=== PATIENT | female | born 1995 | race Caucasian/White ===

== ENCOUNTER 2021-10-26 19:44 | Emergency (ER) | payer OTHER, SELFPAY ==
--- NOTE | 2021-10-26 19:44 | ED.URI ---
HPI - URI/Sore Throat General Stated Complaint: Sinus Pain Time Seen by Provider: 10/26/21 19:44 Source: patient and RN notes reviewed History of Present Illness HPI Narrative: Patient is a 26-year-old female who presents the urgent care with complaints of sinus pressure for the last 5 days. Patient denies of any fever, nausea, vomiting, ear pain, sore throat. Patient states she did have a mild cough which is since subsided. Patient has been taking Mucinex cold and cough. Denies of any known ill exposures. No other acute complaints. No acute distress noted. Patient aware of the plan of care. Some parts of this dictation were generated by voice recognition software and may contain typographical and/or grammatical inaccuracies. Related Data Allergies Allergy/AdvReac Type Severity Reaction Status Date / Time No Known Allergies Allergy Verified 10/26/21 19:56 Review of Systems Review of Systems: CONSTITUTIONAL: Denies fever, chills, or sweats. EYES: Denies visual changes, redness, or discharge. ENT: Denies rhinorrhea,sore throat, or otalgia. Reports a frontal sinus pressure CARDIOVASCULAR: Denies chest pain, palpitations, or edema. RESPIRATORY: Denies cough or dyspnea. GASTROINTESTINAL: Denies abdominal pain, nausea, vomiting, or diarrhea. GENITOURINARY: Denies dysuria or hematuria. SKIN: Denies rash or itching. MUSCULOSKELETAL: Denies back pain, joint pain, or myalgia. NEUROLOGIC: Denies headache, numbness, or weakness. All other systems reviewed are negative, except as documented in HPI. PMFSH Comments At the time of my signature, I reviewed and agree with the nursing past medical, surgical, social, and family history. There is no relevant family history pertinent to the patient complaint. Exam Narrative: GENERAL: This is a well-nourished, well-developed patient, in no apparent distress. HEAD: normocephalic, atraumatic. Frontal sinus tenderness EYES: PERRL. Sclera clear/white. Vision is grossly intact. EARS: External ears normal, auditory canals clear and without drainage, TMs normal without perforation. Hearing grossly intact. NOSE: External nose normal with no obvious nasal discharge, nares without redness, no rhinorrhea. THROAT: Mucous membranes moist, posterior pharynx clear. NECK: Neck supple CARDIOVASCULAR: Regular rate and rhythm without murmurs, gallops, or rubs. RESPIRATORY: Clear to auscultation. Breath sounds equal bilaterally. No wheezes, rales, or rhonchi. SKIN: warm, intact with no suspicious lesions or rash, good texture and turgor. NEURO: awake, alert, and oriented to person, place and time. There were no obvious focal neurologic abnormalities. EXTREMITIES: No clubbing, cyanosis, or edema. Course Course Level of Care: Express Care Visit Vital Signs Vital signs: Vital Signs Temperature 98.4 F 10/26/21 19:55 Pulse Rate 87 10/26/21 19:55 Respiratory Rate 16 10/26/21 19:55 Blood Pressure 159/102 H 10/26/21 19:55 Pulse Oximetry 100 10/26/21 19:55 Temperature 98.4 F 10/26/21 19:58 Pulse Rate 87 10/26/21 19:58 Respiratory Rate 16 10/26/21 19:58 Blood Pressure 159/102 H 10/26/21 19:58 Pulse Oximetry 100 10/26/21 19:58 Reviewed-patient is informed that they may have pre-hypertension or hypertension based on a blood pressure reading in the department. I recommend the patient call the primary care provider listed on their discharge instructions or a physician of their choice this week to arrange follow-up for further evaluation of possible pre-hypertension or hypertension. MDM - URI/Sore Throat MDM Narrative Medical decision making narrative: Explained viral versus bacterial sinusitis to the patient. She is aware that symptoms do not warrant antibiotics at this time. Advised her to complete the steroid regimen as prescribed. Be sure to eat and drink with the medication. Use Claritin daily and Benadryl prior to bedtime. May use Flonase nasal spray for symptom relief. Use Ty
[2021-10-26 19:55] VITALS: BP 159/102; PULSE 87; RESP 16; TEMP 36.9; O2SAT 100
[2021-10-26 19:58] VITALS: BP 159/102; PULSE 87; RESP 16; TEMP 36.9; O2SAT 100
== END 2021-10-26 20:00 | disposition home or self-care (01) ==
PROVIDERS: Emergency Provider Nurse Practitioner Family
DX: J32.9 Chronic sinusitis, unspecified (principal); F41.9 Anxiety disorder, unspecified; F32.A Depression, unspecified
CPT/HCPCS: 99213; G0463

== ENCOUNTER 2024-04-17 16:34 | Outpatient (RCR) | payer OTHER, SELFPAY ==
[2024-04-17 17:35] LABS: Beta HCG Quantitative 51.62 mIU/ML
== END 2024-07-16 23:59 | disposition home or self-care (01) ==
LOC: ANHLAB 16:34
PROVIDERS: Visit Provider Obstetrics & Gynecology
DX: O36.0130 Maternal care for anti-D [Rh] antibodies, third trimester, not applicable or unspecified (principal)
CPT/HCPCS: 36415; 84702; 85461; 86850; 86900; 86901

== ENCOUNTER 2024-04-18 08:48 | Emergency (ER) | payer OTHER, SELFPAY ==
[2024-04-18 09:02] VITALS: BP 129/87; PULSE 82; RESP 18; TEMP 36.8; O2SAT 97
[2024-04-18 09:07] LABS: Basophils Percent Auto 0.2 % (0.2-1.2); Eosinophils Absolute Auto 0.2 K/mm3 (0-0.3); Hemoglobin 13.4 g/dL (12.0-15.0); Immature Granulocyte Absolute 0.02 K/mm3 (0.00-0.031); Immature Granulocyte Percent A 0.2 % (0-0.5); Mean Corpuscular HGB Conc 33.5 g/dl (32-36); Mean Corpuscular Hemoglobin 30.3 pg (26-34); Mean Corpuscular Volume 90.5 fl (80-100); Mean Platelet Volume 10.1 fl (7.4-10.4); Monocytes Absolute Auto 0.6 K/mm3 (0.1-0.6); Monocytes Percent Auto 7.1 % (2.6-8.5); Neutrophils Absolute Auto 5.2 K/mm3 (1.3-6.7); Neutrophils Percent Auto 63.5 % (45.5-73.1); Platelet Count Result 225 k/mm3 (150-375); Red Blood Count 4.42 M/mm3 (4.2-5.4); Red Cell Distribution Width 12.5 % (11.5-14.5); White Blood Count 8.2 K/mm3 (4.5-10.0)
--- NOTE | 2024-04-18 09:22 | ED_ITS ---
HPI - General Chief complaint: Vaginal Bleeding Stated complaint: with bleeding Time Seen by Provider: 04/18/24 08:51 History of Present Illness HPI Narrative: patient is , around 6 weeks by LMP though possibly less, started noticing some bleeding yesterday, saw her doctor, had an ultrasound which is equivocal as she was too early to tell, came back today because she has noticed more bleeding. Has not use any pads, did change her underwear twice. Has some cramping Related Data Home Medications Medication Instructions Recorded Confirmed bupropion HCl 75 mg tablet 75 mg PO DAILY 10/26/21 10/26/21 venlafaxine 25 mg tablet 25 mg PO BID 10/26/21 10/26/21 Allergies Allergy/AdvReac Type Severity Reaction Status Date / Time No Known Allergies Allergy Verified 04/18/24 09:04 Review of Systems Review of Systems: All systems reviewed & are unremarkable except as noted in HPI and below Exam Narrative: EXAMINATION OF ORGAN SYSTEMS/BODY AREAS: Constitutional: Vital signs per nursing GENERAL:[No acute distress, non-toxic appearing.] HEAD: Normal with no signs of head trauma. EYES: EOMI, conjunctiva normal ENT: Hearing grossly intact LUNGS: Nonlabored breathing. HEART: [Regular rate and rhythm] ABD: [Soft], [nontender to palpation] : with partner in room. Scant blood; no active heavy bleeding or hemorrhage EXT: Normal range of motion SKIN: [No rashes or lesions.] NEURO: [Alert and oriented x 3. No gross focal sensory or strength deficits.] PSYCH: Normal affect Course Vital Signs Vital signs: Vital Signs Temperature 98.2 F 04/18/24 09:02 Pulse Rate 82 04/18/24 09:02 Respiratory Rate 18 04/18/24 09:02 Blood Pressure 129/87 04/18/24 09:02 Pulse Oximetry 97 04/18/24 09:02 Oxygen Delivery Room Air 04/18/24 09:02 Temperature 98.2 F 04/18/24 09:02 Pulse Rate 82 04/18/24 09:02 Respiratory Rate 18 04/18/24 09:02 Blood Pressure 129/87 04/18/24 09:02 Pulse Oximetry 97 04/18/24 09:02 Oxygen Delivery Room Air 04/18/24 09:02 MDM - OB/Uterine Contractions MDM Narrative Medical decision making narrative: Patient presents with vaginal bleeding, at several weeks , as she is well-appearing, abdomen soft nontender, scant blood, repeat hCG unfor tunately is lower, I am concerned about likely failed / miscarriage. Discussed findings with patient, as well as importance of following up with her OB as she will need follow-up and return precautions are discussed in case of worsening bleeding. She and at bedside agreeable to this plan. Lab Data 04/18/24 09:02 Labs: Lab Results 04/18/24 Range/Units 09:02 WBC 8.2 (4.5-10.0) K/mm3 RBC 4.42 (4.2-5.4) M/mm3 Hgb 13.4 (12.0-15.0) g/dL Hct 40.0 (37.0-47.0) % MCV 90.5 (80-100) fl MCH 30.3 (26-34) pg MCHC 33.5 (32-36) g/dl RDW 12.5 (11.5-14.5) % Plt Count 225 (150-375) k/mm3 MPV 10.1 (7.4-10.4) fl Immature Gran % (Auto) 0.2 (0-0.5) % Neut % (Auto) 63.5 (45.5-73.1) % Lymph % (Auto) 27.0 (18.3-44.2) % [place] % (Auto) 7.1 (2.6-8.5) % Eos % (Auto) 2.0 (0-4.4) % Baso % (Auto) 0.2 (0.2-1.2) % Lymph # (Auto) 2.20 (0.9-3.2) K/mm3 [place] # (Auto) 0.6 (0.1-0.6) K/mm3 Eos # (Auto) 0.2 (0-0.3) K/mm3 Baso # (Auto) 0.0 (0.0-0.1) K/mm3 Abs Immat Gran (auto) 0.02 (0.00-0.031) K/mm3 Absolute Neuts (auto) 5.2 (1.3-6.7) K/mm3 Absolute Nucleated RBC 0.000 (0.0-0.012) K/mm3 Nucleated RBC % 0.0 (0.0-0.2) % Beta HCG, Quant 35.28 mIU/ML Discharge Plan Discharge Clinical Impression: Threatened Patient Disposition: Home, Self-Care Condition: Stable Instructions: Threatened Miscarriage (ED) Additional Instructions: Please follow-up with your OBGYN. Come back to the ER if you start bleeding more heavily (soaking through a pad an hour for 2 hours straight). Prescriptions: No Action methylprednisolone [Medrol (Alec)] 4 mg tablets,dose pack See Rx Instructions .ROUTE .COMPLEX Qty: 21 0RF Rx Instructions: orally per package directions venlafaxine 25 mg Tablet 25 mg PO BID bupropion HCl [Wellbutrin] 75 mg Tablet 75 mg PO DAILY Follow-up/Referrals: Slavador Arreola MD [Primary Care Provider] - 2 Days
[2024-04-18 09:36] LABS: Beta HCG Quantitative 35.28 mIU/ML
[2024-04-18 09:59] VITALS: BP 119/85; PULSE 77; RESP 18; O2SAT 99
== END 2024-04-18 10:02 | disposition home or self-care (01) ==
PROVIDERS: Emergency Provider Emergency Medicine; PCP Obstetrics & Gynecology
DX: O20.0 Threatened abortion (principal); Z3A.01 Less than 8 weeks gestation of pregnancy
CPT/HCPCS: 36415; 84702; 85025; 99283

== ENCOUNTER 2024-04-26 08:25 | Outpatient (CLI) | payer OTHER, SELFPAY ==
[2024-04-26 09:24] LABS: Beta HCG Quantitative < 2.39 mIU/ML
== END 2024-04-26 08:26 | disposition home or self-care (01) ==
PROVIDERS: PCP Obstetrics & Gynecology; Visit Provider Obstetrics & Gynecology
DX: O20.0 Threatened abortion (principal); Z3A.00 Weeks of gestation of pregnancy not specified
CPT/HCPCS: 36415; 84702

== ENCOUNTER 2024-12-24 09:18 | Emergency (ER) | payer OTHER, SELFPAY ==
--- OUTSIDE RECORDS SUMMARY | 2024-12-24 09:21 | XMS_ITS | Encounter Summary ---
Author Organization [facility] Address [address] [place] [address] Care Team Providers Care Mosaic Tile Maker Name Role Phone Jacquelyn Madison Primary Care Provider [phone] Encounter Details Date Type Department Care Team (Late st Contact Info) Description 06/03/2022 Hand Therapy Solutionst Message Enc [facility] Family & Internal Medicine [id number] [place] [address] Jacquelyn Madison APNP Formerly named [facility] [place] [address] HSV1 medicine Social History Tobacco Use Types Packs/Day Years Used Date Smoking Tobacco: Never Smokeless Tobacco: Never Alcohol Use Standard Drinks/Week Comments Yes 3 (1 standard drink = 0.6 oz pur e alcohol) social PHQ-2 Answer Date Recorded PHQ-2 Score - If the patient scores above 3, please move on to questions 3-9 3 11/26/2020 Education Answer Date Recorded What is the highest level of school you have completed or the highest degree you have received? Associate degree: occupational, technical, or vocational program 05/31/2018 Comments No Sex and Gender Information Value Date Recorded Sex Assigned at Not on file Legal Sex Female 7:42 PM CDT Gender Identity Female 07/21/2021 11:07 AM REGIONAL EDUCATION MANAGER Sexual Orientation Straight 07/21/2021 11 :07 AM REGIONAL EDUCATION MANAGER Occupation Industry Job Start Date Job End Date Not on file Not on file Not on file Not on file Not on file Not on file Not on file Not on file documented as of this encounter Plan of Treatment Not on file documented as of this encounter Visit Diagnoses Not on filedocumented in this encounter Additional Health Concerns Assessment Noted Time PHQ-9 Depression Total Score: 20 021 9:16 AM CDT documented as of this encounter Care Teams Mosaic Tile Maker Relationship Specialty Start Date End Date Jacquelyn Madison APNP [address] [place] [id number] PCP - General NURSE PRACTITIONER 07/22/21 documented as of this encounter
--- OUTSIDE RECORDS SUMMARY | 2024-12-24 09:21 | XMS_ITS | Encounter Summary ---
Author Organization [facility] Address [address] [place] [address] Care Team Providers Care Float Phlebotomist Name Role Phone Jacquelyn Madison Primary Care Provider [phone] Encounter Details Date Type Department Care Team (Late st Contact Info) Description 10/09/2022 Demibookshart Message Enc [facility] Family & Internal Medicine [id number] [place] [address] Jacquelyn Madison APNP [facility] [place] [address] Test results Social History Tobacco Use Types Packs/Day Years Used Date Smoking Tobacco: Never Smokeless Tobacco: Never Alcohol Use Standard Drinks/Week Comments Not Currently 3 (1 standard drink = 0.6 oz [...] CDT Gender Identity Female 07/21/2021 11:07 AM PRESS CLIPPINGS CUTTER AND PASTER Sexual Orientation Straight 07/21/2021 11 :07 AM PRESS CLIPPINGS CUTTER AND PASTER Occupation Industry Job Start Date Job End Date Not on file Not on file Not on file Not on file Not on file Not on file Not on file Not on file COVID-19 Exposure Response Date Recorded In the last 10 days, have yo u been in contact with someone who was confirmed or suspected to have Coronavirus/COVID-19? No / Unsure 10/07/2022 12:13 PM CDT documented as of this encounter Progress Notes * MICA Wang - 10/10/2022 10:19 AM CDT Addressed in result note * MICA Wang - 10/10/2022 10:19 AM CDTFrom: Leena Montana To: Jacquelyn Madison Sent: 10/09/2022 1:20 PM CDT Subject: Test results Hello! Have you had the chance to read my test results yet?? Thank you documented in this encounter Plan of Treatment Not on file documented as of this encounter Visit Diagnoses Not on filedocumented in this encounter Additional Health Concerns Assessment Noted Time PHQ-9 Depression Total Score: 20 021 9:16 AM CDT documented as of this encounter Care Teams Float Phlebotomist Relationship Specialty Start Date End Date Jacquelyn Madison APNP [address] [place] [address] PCP - General NURSE PRACTITIONER 07/22/21 documented as of this encounter
--- OUTSIDE RECORDS SUMMARY | 2024-12-24 09:21 | XMS_ITS | Referral Summary ---
Author Organization [facility] Address [address] [place] [address] Care Team Providers Care Houseman Name Role Phone Jacquelyn Madison Primary Care Provider + Jacquelyn Madison Unavailable [phone] Allergies No known active allergies Medications citalopram (CeleXA) 40 mg tablet 0.5 tablets (20 mg total) 4 Active methylPREDNISol one (Medrol, Alec,) 4 mg DosepackIndicat ions:Acute VLADISLAV (middle ear effusion), bilateral follow package directions 1 packet 4 Active ondansetron (ZOFRAN) 4 mg tablet Take 1 tablet (4 mg total) by mouth every 6 (six) hours 12 tablet 5 Active Active Problems Problem Noted Date Diagnosed Date Migraine without aura and responsive to treatmen t 12/26/2013 Overview (09/24/2016): COMN MIGRNE WO NTRC MGRN Fever 10/28/2013 Overview (09/24/2016): FEVER NOS Tremor 10/28/2013 Overview (09/24/2016): TREMOR NEC Malaise and fatigue 10/28/2013 Overview (09/24/2016): MALAISE AND FATIGUE NEC Cellulitis of trunk 10/28/2013 Overview (09/24/2016): CELLULITIS OF TRUNK Nausea and vomiting 10/28/2013 Overview (09/24/2016): NAUSEA WITH VOMITING Infectious warts 10/28/2013 Overview (09/24/2016): VIRAL WARTS NOS Disorder of skin or subcutaneous tissue 10/29/19 14 Overview (09/24/2016): SKIN DISORDER NOS Dizziness and giddiness 10/28/2013 Overview (09/24/2016): DIZZINESS AND GIDDINESS Atopic rhinitis 10/28/2013 Overview (09/24/2016): ALLERGIC RHINITIS NOS Headache 10/28/2013 Overview (09/24/2016): HEADACHE Gastroesophageal reflux disease 10/28/2013 Overview (09/24/2016): ESOPHAGEAL REFLUX Asthma 10/28/2013 Overview (09/24/2016): ASTHMA NOS Plantar wart 10/28/2013 Overview (09/24/2016): PLANTAR WART Neoplasm of uncertain behavior of skin 4 Overview (09/24/2016): UNC BEHAV YURIY SKIN Acute streptococcal pharyngitis 10/28/2013 Overview (09/24/2016): STREP SORE THROAT Immunizations Immunization Administration Dates Next Due DT 03/30/2000, 7,1995,1995,1 Hep B, Adolescent or Pediatric 1995,1994,1995 Hib (HbOC) 1995,1995,1995 IPV 03/30/2000,1995,1995 ,1995 Influenza, Split 03/24/2010 Influenza, Trivalent, IM (MDV) 03/14/2011 MMR 03/30/2000,08/24/1996 Meningococcal MCV4P (Menactra) 03/24/2010 Tdap 03/24/2010 Social History Tobacco Use Types Packs/Day Years Used Date Smoking Tobacco: Never Smokeless Tobacco: Never Alcohol Use Standard Drinks/Week Comments No 0 (1 standard drink = 0.6 oz pur e alcohol) Personal Safety Answer Date Recorded Have you ever been in or are you currently in a harmful physical or emotional relationship or is someone making you feel afraid or unsafe? Denies 07/04/2024 Comments Unknown Sex and Gender Information Value Date Recorded Sex Assigned at Not on file Legal Sex Female 1:19 PM FINISHED YARN EXAMINER Gender Identity Not on file Sexual Orientation Not on file Last Filed Vital Signs Vital Sign Reading Time Taken Comments Blood Pressure 128/77 07/04/2024 1:29 PM FINISHED YARN EXAMINER Pulse 116 07/04/2024 1:29 PM FINISHED YARN EXAMINER Temperature 36.3 C (97.3 F) 07/04/2024 1:29 PM FINISHED YARN EXAMINER Respiratory Rate 18 07/04/2024 1:29 PM FINISHED YARN EXAMINER Oxygen Saturation 99% 07/04/2024 1:29 PM FINISHED YARN EXAMINER Inhaled Oxygen Concentration - - Weight 81.6 kg (180 lb) 07/04/2024 1:29 PM FINISHED YARN EXAMINER Height 167.6 cm (5' 6) 07/04/2024 1:29 PM FINISHED YARN EXAMINER Body Mass Index 29.05 07/04/2024 1:29 PM FINISHED YARN EXAMINER Plan of Treatment Not on file Insurance [facility] CHOICE PLUS [facility] Care Teams Houseman Relationship Specialty Start Date End Date Jacquelyn Madison PA [address] [place] [id number] PCP - General Nurse Practitioner 07/04/24 Jacquelyn Madison PA [address] [place] [id number] Nurse Practitioner 07/04/24
--- OUTSIDE RECORDS SUMMARY | 2024-12-24 09:21 | XMS_ITS | Encounter Summary ---
Author Organization [facility] Address [address] [place] [address] Care Team Providers Care Casing Cooker Name Role Phone Brice Georges MD Primary Care Provider [phone] Jacquelyn Madison Primary Care Provider [phone] Encounter Details Date Type Department Care Team (Latest Contact Info) Description 02/25/2018 Abstract [facility] , Generic Jovita, Social History Tobacco Use Types Packs/Day Years Used Date Smoking Tobacco: Never Assessed Comments Unknown Sex and Gender Information Value Date Recorded Sex Assigned at Not on file Legal Sex Female 7:42 PM CDT Gender Identity Female 07/21/2021 11:07 AM FIELD RADIO OPERATOR Sexual Orientation Straight 07/21/2021 11 :07 AM FIELD RADIO OPERATOR documented as of this encounter Plan of Treatment Not on file documented as of this encounter Visit Diagnoses Not on filedocumented in this encounter Additional Health Concerns Infection Onset Date Last Indicated Resolved Time COVID-19 Rule Out 01/01/2020 01/02/2020 01/15/2020 7:38 AM CDT documented as of this encounter Care Teams Casing Cooker Relationship Specialty Start Date End Date Brice Georges MD PCP - General INTERNAL MEDICINE 05/31/18 07/02/21 Jacquelyn Madison APNP [address] [place] [id number] PCP - General NURSE PRACTITIONER 07/22/21 documented as of this encounter
--- OUTSIDE RECORDS SUMMARY | 2024-12-24 09:21 | XMS_ITS | Encounter Summary ---
Author Organization [facility] Address [address] [place] [address] Care Team Providers Care Linter Saw Sharpener Name Role Phone Jacquelyn Madison Primary Care Provider [phone] Encounter Details Date Type Department Care Team (Late st Contact Info) Description 08/18/2022 MyGoodPointshart Message Enc [facility] Family & Internal Medicine [id number] [place] [address] [address] APNP [facility] [place] [address] Medicine Social History Tobacco Use Types Packs/Day Years [...] CDT Gender Identity Female 07/21/2021 11:07 AM SHIFT COMMANDER Sexual Orientation Straight 07/21/2021 11 :07 AM SHIFT COMMANDER Occupation Industry Job Start Date Job End Date Not on file Not on file Not on file Not on file Not on file Not on file Not on file Not on file COVID-19 Exposure Response Date Recorded In the last 10 days, have yo u been in contact with someone who was confirmed or suspected to have Coronavirus/COVID-19? Unable to assess 08/20/2022 6:42 AM SHIFT COMMANDER documented as of this encounter Plan of Treatment Not on file documented as of this encounter Visit Diagnoses Not on filedocumented in this encounter Additional Health Concerns Assessment Noted Time PHQ-9 Depression Total Score: 20 021 9:16 AM CDT documented as of this encounter Care Teams Linter Saw Sharpener Relationship Specialty Start Date End Date Jacquelyn Madison APNP [address] [place] [id number] PCP - General NURSE PRACTITIONER 07/22/21 documented as of this encounter
--- OUTSIDE RECORDS SUMMARY | 2024-12-24 09:21 | XMS_ITS | Clinical Summary ---
Author Organization [facility] Address [address] [place] [address] Care Team Providers Care Salt Operator Name Role Phone Jacquelyn Madison Primary Care Provider + Jacquelyn Madison Unavailable Allergies No known active allergies Medications citalopram [...] 03/30/2000,08/24/1996 Meningococcal MCV4P (Menactra) 03/24/2010 Tdap 03/24/2010 Family History Medical History Relation Name Comments Asthma Brother Asthma; Hypertension Father Hypertension; Lung cancer Father Cancer, lung; Other Sister 2 CN 8 tumor; Other Sister 3 Neurofibromatos is?; Other Sister 4 Neurofibromatos is 2; Relation Name Status Comments Brother Father Sister 1 Alive Sister 2 Sister 3 Sister 4 Social History Tobacco Use Types Packs/Day Years [...] on file Legal Sex Female 1:19 PM EMISSIONS INSPECTOR Gender Identity Not on file Sexual Orientation Not on file Obstetrics History Last Filed Vital Signs Vital Sign Reading Time Taken Comments Blood Pressure 128/77 07/04/2024 1:29 PM EMISSIONS INSPECTOR Pulse 116 07/04/2024 1:29 PM EMISSIONS INSPECTOR Temperature 36.3 C (97.3 F) 07/04/2024 1:29 PM EMISSIONS INSPECTOR Respiratory Rate 18 07/04/2024 1:29 PM EMISSIONS INSPECTOR Oxygen Saturation 99% 07/04/2024 1:29 PM EMISSIONS INSPECTOR Inhaled Oxygen Concentration - - Weight 81.6 kg (180 lb) 07/04/2024 1:29 PM EMISSIONS INSPECTOR Height 167.6 cm (5' 6) 07/04/2024 1:29 PM EMISSIONS INSPECTOR Body Mass Index 29.05 07/04/2024 1:29 PM EMISSIONS INSPECTOR Plan of Treatment Health Maintenance Due Date Last Done Comments Cervical Cancer Screening 1995 Depression Screening 1995 Hepatitis C Screening 1995 Varicella Vaccines (1 of 2 - 13+ 2-dose series) 01/17/2008 Regular Well Visit/Exam 18-64 2013 Pneumococcal vaccine <65 (1 of 2 - PCV) 2014 DTaP/Tdap/Td Vaccine (7 - Td or Tdap) 03/24/2020 03/24/2010, 03/30/2000, 08/24/1996, Additional history exists Influenza Vaccine (Season Ended) 2025 03/14/2011, 03/24/2010 Hepatitis B Screening Completed 1995 , 1995, 1995 HPV Vaccines Aged Out No longer eligi ble based on patient's age to complete this topic Insurance [facility] CHOICE PLUS [facility] HMO/PPO Address: [address] [address] [place] [address] [facility] H[facility]/PPO Address: [address] [address] [place] [address] Care Teams Salt Operator Relationship Specialty Start Date End Date Jacquelyn Madison PA [address] [place], [place] [phone] PCP - General Nurse Practitioner 07/04/24 Jacquelyn Madison PA [address] [place] [address] [phone] Nurse Practitioner 07/04/24
--- OUTSIDE RECORDS SUMMARY | 2024-12-24 09:21 | XMS_ITS | Encounter Summary ---
Author Organization [facility] Address [address] [place] [address] Care Team Providers Care Security Operations Center Analyst Name Role Phone Jacquelyn Madison Primary Care Provider [phone] Encounter Details Date Type Department Care Team (Late st Contact Info) Description 11/13/2022 Ikrot Message Enc [facility] Family & Internal Medicine [address] [address] [place] Provider Citalopram Social History Tobacco Use Types Packs/Day Years [...] CDT Gender Identity Female 07/21/2021 11:07 AM DTP OPERATOR Sexual Orientation Straight 07/21/2021 11 :07 AM DTP OPERATOR Occupation Industry Job Start Date Job End [...] documented as of this encounter Care Teams Security Operations Center Analyst Relationship Specialty Start Date End Date Jacquelyn Madison APNP [facility] [place] [address] PCP - General NURSE PRACTITIONER 07/22/21 documented as of this encounter
--- OUTSIDE RECORDS SUMMARY | 2024-12-24 09:21 | XMS_ITS | Encounter Summary ---
Author Organization [facility] Address [address] [place] [address] Care Team Providers Care Quality Control Assessor Name Role Phone Jacquelyn Madison Primary Care Provider [phone]- [phone] Encounter Details Date Type Department Care Team (Late st Contact Info) Description 08/22/2022 [employer] Message Enc [facility] Medical Group Family & Internal Medicine [phone] [place] [address] Jacquelyn Madison APNP [facility] [place] [address] Prescription Social History Tobacco Use Types Packs/Day Years [...] CDT Gender Identity Female 07/21/2021 11:07 AM INVENTORY CONTROL ANALYST Sexual Orientation Straight 07/21/2021 11 :07 AM INVENTORY CONTROL ANALYST Occupation Industry Job Start Date Job End [...] Coronavirus/COVID-19? Unable to assess 08/20/2022 6:42 AM INVENTORY CONTROL ANALYST documented as of this encounter Plan of Treatment Not on file documented as of this encounter Visit Diagnoses Not on filedocumented in this encounter Additional Health Concerns Assessment Noted Time PHQ-9 Depression Total Score: 20 021 9:16 AM CDT documented as of this encounter Care Teams Quality Control Assessor Relationship Specialty Start Date End Date Jacquelyn Madison APNP [address] [place] [id number] PCP - General NURSE PRACTITIONER 07/22/21 documented as of this encounter
--- OUTSIDE RECORDS SUMMARY | 2024-12-24 09:21 | XMS_ITS | Encounter Summary ---
Author Organization [facility] Address [address] [place] [address] Care Team Providers Care Rim Turning Finisher Name Role Phone Jacquelyn Madison Primary Care Provider [phone]- [phone] Encounter Details Date Type Department Care Team (Late st Contact Info) Description 08/13/2022 Darby Smarthart Message Enc [facility] Medical Group Family & Internal Medicine [phone] [place] [address] Jacquelyn Madison APNP [facility] [place] [address] Appointment Social History Tobacco Use Types Packs/Day Years [...] CDT Gender Identity Female 07/21/2021 11:07 AM YARD OPERATOR Sexual Orientation Straight 07/21/2021 11 :07 AM YARD OPERATOR Occupation Industry Job Start Date Job [...] documented as of this encounter Care Teams Rim Turning Finisher Relationship Specialty Start Date End Date Jacquelyn Madison APNP [address] [place] [id number] PCP - General NURSE PRACTITIONER 07/22/21 documented as of this encounter
--- OUTSIDE RECORDS SUMMARY | 2024-12-24 09:21 | XMS_ITS | Encounter Summary ---
Author Organization [facility] Address [address] [place] [address] Care Team Providers Care Ornamenter Hand Name Role Phone Jacquelyn Madison Primary Care Provider [phone]- [phone] Encounter Details Date Type Department Care Team (Late st Contact Info) Description 12/09/2022 MyChart Message Enc [facility] Medical Group - [facility] [address] [place], [place] [id number] [address], [facility] Provider Air Quality Message Social History Tobacco Use Types Packs/Day Years [...] CDT Gender Identity Female 07/21/2021 11:07 AM BATHROOM TILING PROFESSIONAL Sexual Orientation Straight 07/21/2021 11 :07 AM BATHROOM TILING PROFESSIONAL Occupation Industry Job Start Date Job End [...] documented as of this encounter Care Teams Ornamenter Hand Relationship Specialty Start Date End Date Jacquelyn Madison APNP [facility] [place] [address] PCP - General NURSE PRACTITIONER 07/22/21 documented as of this encounter"
--- OUTSIDE RECORDS SUMMARY | 2024-12-24 09:21 | XMS_ITS | Encounter Summary ---
Author Organization [facility] Address [address] [place] [address] Care Team Providers Care Rail Doweling Machine Operator Name Role Phone Jacquelyn Madison Primary Care Provider [phone]- [phone] Encounter Details Date Type Department Care Team (Late st Contact Info) Description 09/18/2022 [employer] Message Enc [facility] Medical Group Family & Internal Medicine [phone] [place] [address] Jacquelyn Madison APNP [facility] [place] [address] UTI Social History Tobacco Use Types Packs/Day Years [...] CDT Gender Identity Female 07/21/2021 11:07 AM CORD CUTTER Sexual Orientation Straight 07/21/2021 11 :07 AM CORD CUTTER Occupation Industry Job Start Date Job End [...] Coronavirus/COVID-19? Unable to assess 08/20/2022 6:42 AM CORD CUTTER documented as of this encounter Progress Notes * MICA Wang - 09/18/2022 3:02 PM CDT I sent over some bactrim and if symptoms do not improve, needs to be seen Fever, chills, abd pain, fatigue, N/V--go to ER over weekend * Dora Duenas MA - 09/18/2022 1:18 PM CDT Patient c/o frequent urine, burning sensation and some discomfort in her abdomen. documented in this encounter Plan of Treatment Not on file documented as of this encounter Visit Diagnoses Diagnosis Acute cystitis without hematuria- Primary Acute cystitis documented in this encounter Additional Health Concerns Assessment Noted Time PHQ-9 Depression Total Score: 20 11/26/ 021 9:16 AM CDT documented as of this encounter Care Teams Rail Doweling Machine Operator Relationship Specialty Start Date End Date Jacquelyn Madison APNP [address] [place] [address] PCP - General NURSE PRACTITIONER 07/22/21 documented as of this encounter
--- OUTSIDE RECORDS SUMMARY | 2024-12-24 09:21 | XMS_ITS | Encounter Summary ---
Author Organization [facility] Address [address] [place] [address] Care Team Providers Care Clinical Services Specialist Name Role Phone Jacquelyn Madison Primary Care Provider [phone]- [phone] Encounter Details Date Type Department Care Team (Late st Contact Info) Description 09/15/2022 [employer] Message Enc [facility] Medical Group Family & Internal Medicine [phone] [place] [address] Jacquelyn Madison APNP [facility] [place] [address] Weight loss Social History Tobacco Use Types Packs/Day Years [...] CDT Gender Identity Female 07/21/2021 11:07 AM SAFETY ENGINEER Sexual Orientation Straight 07/21/2021 11 :07 AM SAFETY ENGINEER Occupation Industry Job Start Date Job End [...] Coronavirus/COVID-19? Unable to assess 08/20/2022 6:42 AM SAFETY ENGINEER documented as of this encounter Plan of Treatment Not on file documented as of this encounter Visit Diagnoses Not on filedocumented in this encounter Additional Health Concerns Assessment Noted Time PHQ-9 Depression Total Score: 20 021 9:16 AM CDT documented as of this encounter Care Teams Clinical Services Specialist Relationship Specialty Start Date End Date Jacquelyn Madison APNP [address] [place] [address] PCP - General NURSE PRACTITIONER 07/22/21 documented as of this encounter
--- OUTSIDE RECORDS SUMMARY | 2024-12-24 09:21 | XMS_ITS | Data Portability ---
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 Phone Father Name Mid Level Project Manager Status 08/26/19 25 1 CLOSED Fetus Data First Name Last Name Admitted to NICU Weight (g) Sex Living Outcome Pediatric Complications Fetus ID Race Codes Race Delivery Type [id number] Salvador Calculation Initial Salvador Date Initial Exam Date Initial Exam Provider Initial Ultrasound Date Last Menstrual Period Date Ultra Sound Weeks Gestation 0 Eighteen To Twenty Week Salvador Update Ultra Sound Date Fundal Height At Umbil Quickening Date Ultra Sound Latest Weeks Gestation Final Salvador Confirmed By Final Salvador Confirmed Date Final Salvador Date Ultra Sound Latest Days Gestation 0 0 Menstrual History Last Menstrual Date Menses Monthly On Bcp Conception Prior Menses Frequency Hcg Plus Date Menarche Onset Age Delivery Information Delivery Date Delivery Type Labor Anesthesia Weeks Gestation Incision Type Labor Labor Length Hrs Delivered By Post Complications Tubal Sterilization Discharge Date Comments 4 Discharge Information Feeding Method Contraceptive Method Maternal HG B and HCT Levels
--- NOTE | 2024-12-24 09:22 | ED.GENADULT ---
HPI - General Adult General Chief complaint: Skin/Abscess/Foreign Body Stated complaint: contact derm on hands / allergic reaction on legs Time Seen by Provider: 12/24/24 09:22 Source: patient Mode of arrival: ambulatory Limitations: no limitations History of Present Illness HPI narrative: 29-year-old female patient presents to the [facility] with complaints of a rash bilateral hands and inside bilateral thighs. Patient states the rash this started between the thighs started on Wednesday after she had an ache retrieval for IVF. Patient states that 2 days ago she was working with simply some plants and ended up getting a rash to the hands. Patient states that the rash to both areas are itchy. Denies fevers body aches or chills. Related Data Allergies Allergy/AdvReac Type Severity Reaction Status Date / Time No Known Allergies Allergy Verified 04/18/24 09:04 Review of Systems Review of Systems: CONSTITUTIONAL: Denies fever, chills, or sweats. EYES: Denies visual changes, redness, or discharge. ENT: Denies rhinorrhea, congestion, sore throat, or otalgia. CARDIOVASCULAR: Denies chest pain, palpitations, or edema. RESPIRATORY: Denies cough or dyspnea. GASTROINTESTINAL: Denies abdominal pain, nausea, vomiting, or diarrhea. GENITOURINARY: Denies dysuria or hematuria. SKIN: Positive rash to bilateral hands and bilateral inner thighs with itchiness MUSCULOSKELETAL: Denies back pain, joint pain, or myalgia. NEUROLOGIC: Denies headache, numbness, or weakness. PSYCHIATRIC: Denies anxiety or depression. [facility] Past Medical History Medical History (Updated 12/24/24 @ 09:49 by ISHMAEL Guerrero) No significant past medical history Comments At the time of my signature I agree with nursing past medical history, surgical, social, and family history. There is no relevant family history pertinent to the presenting complaint. Exam Narrative: GENERAL: Well-appearing, well-nourished, and in no acute distress. HEAD: Normocephalic, atraumatic. EYES: PERRLA and EOMI. ENT: Nares clear, no rhinorrhea or epistaxis. Mucous membranes moist. NECK: Supple. No lymphadenopathy CHEST: Clear to auscultation. No respiratory distress. HEART: Regular rate and rhythm. No murmur heard. Normal peripheral pulses. ABDOMEN: Soft, nontender, nondistended, normal active bowel sounds. EXTREMITIES: Normal range of motion. No edema. SKIN: Warm, dry, patient has a sporadic rash noted to bilateral hands the rash is slightly raised with some yellow vesicles in a linear pattern. One area to the left wrist does show a circular pattern with some raised vesicles. No open wounds or drainage noted. The rash to the inner thighs appear somewhat circular no vesicles noted to this rash. No clearing to the middle. NEURO: No focal deficits. Alert and oriented x3. Course Course Level of Care: Express Care Visit Vital Signs Vital signs: Vital Signs Temperature 36.8 C 12/24/24 09:30 Pulse Rate 90 12/24/24 09:30 Respiratory Rate 16 12/24/24 09:30 Blood Pressure 138/74 12/24/24 09:30 Pulse Oximetry 100 12/24/24 09:30 Oxygen Delivery Room Air 12/24/24 09:30 Temperature 36.8 C 12/24/24 09:30 Pulse Rate 90 12/24/24 09:30 Respiratory Rate 16 12/24/24 09:30 Blood Pressure 138/74 12/24/24 09:30 Pulse Oximetry 100 12/24/24 09:30 Oxygen Delivery Room Air 12/24/24 09:30 Vital signs reviewed. The patient has been informed that they may have pre-hypertension or Hypertension based on a BP reading in the department. I recommend that the patient call the primary care provider listed on their discharge instructions or a physician of their choice this week to arrange follow up for further evaluation of possible pre-hypertension or Hypertension Medical Decision Making MDM Narrative Medical decision making narrative: Plan of care for patient is to discharge home with a try some alone steroid ointments since the rash is only to the hands and inner thighs. Discussed with patient to also take a 24 hour antihistamine something such as Zyrtec, Claritin or Dahlia to help with the itching. Patient verbalized understanding denies any other questions or concerns at this time. Differential Diagnosis Differential Diagnosis: Differential diagnosis: Contact dermatitis, poison pradeep, poison sumac, psoriasis, eczema, allergic reaction, drug reaction, scabies, tinea syphilis, lung disease, viral exanthema, pityriasis, erythema multiforme. Vital Signs Vital Signs: Vital Signs Temperature 36.8 C 12/24/24 09:30 Pulse Rate 90 12/24/24 09:30 Respiratory Rate 16 12/24/24 09:30 Blood Pressure 138/74 12/24/24 09:30 Pulse Oximetry 100 12/24/24 09:30 Oxygen Delivery Room Air 12/24/24 09:30 Temperature 36.8 C 12/24/24 09:30 Pulse Rate 90 12/24/24 09:30 Respiratory Rate 16 12/24/24 09:30 Blood Pressure 138/74 12/24/24 09:30 Pulse Oximetry 100 12/24/24 09:30 Oxygen Delivery Room Air 12/24/24 09:30 Critical Care Time Critical Care Time Critical Care Time: No Discharge Plan Discharge Clinical Impression: Allergic contact dermatitis due to plant Patient Disposition: Home Condition: Stable Instructions: Antibiotic Form, Contact Dermatitis (ED) Additional Instructions: Wash the area with soap and cool water only. Use skin creams/lotion or anti-itch medicine to reduce itchiness Avoid scratching when possible to prevent worsening of the condition and disruption of the skin that could lead to bacterial infection To relieve itching, place a cool washcloth or some ice over the area that itches, rather than scratching Follow up with primary care provider or seek ER if you have trouble breathing, become hoarse, or start wheezing, develop belly cramps, vomiting or feel dizzy. Patient Language: Yi Prescriptions: New triamcinolone acetonide 0.1 % cream 1 applic topical TID Qty: 80 0RF Follow-up/Referrals: Gricelda,PATY Valladares [Primary Care Provider] - Time of Disposition: 09:43
--- OUTSIDE RECORDS SUMMARY | 2024-12-24 09:22 | XMS_ITS | Encounter Summary ---
Author Organization [facility] Address [address] [place] [address] Care Team Providers Care Blocking Machine Operator Name Role Phone Jacquelyn Madison Primary Care Provider [phone] Encounter Details Date Type Department Care Team (Late st Contact Info) Description 08/25/2021 Interstate Data USAhart Message Enc [facility] Medical Group Family & Internal Medicine [id number] [place] [address] Jacquelyn Madison APNP [facility] [place] [address] Venlafaxine Social History Tobacco Use Types Packs/Day Years [...] CDT Gender Identity Female 07/21/2021 11:07 AM MANUFACTURING FINANCE MANAGER Sexual Orientation Straight 07/21/2021 11 :07 AM MANUFACTURING FINANCE MANAGER Occupation Industry Job Start Date Job [...] documented as of this encounter Care Teams Blocking Machine Operator Relationship Specialty Start Date End Date Jacquelyn Madison APNP [address] [place] [address] PCP - General NURSE PRACTITIONER 07/22/21 documented as of this encounter
--- OUTSIDE RECORDS SUMMARY | 2024-12-24 09:22 | XMS_ITS | Encounter Summary ---
Author Organization [facility] Address [address] [place] [address] Care Team Providers Care Rn First Assist Name Role Phone Jacquelyn Madison Primary Care Provider [phone] Encounter Details Date Type Department Care Team (Late st Contact Info) Description 03/06/[address] [facility] Medical Group Family & Internal Medicine [address] [place] [address] Jacquelyn Madison APNP [facility] [place] [address] Question regarding HERPES SIMPLEX VIRUS IGG Social History Tobacco Use Types Packs/Day Years [...] CDT Gender Identity Female 07/21/2021 11:07 AM FEDERAL DISTRICT CLERK Sexual Orientation Straight 07/21/2021 11 :07 AM FEDERAL DISTRICT CLERK Occupation Industry Job Start Date Job End Date Not on file Not on file Not on file Not on file Not on file Not on file Not on file Not on file COVID-19 Exposure Response Date Recorded In the last 10 days, have yo u been in contact with someone who was confirmed or suspected to have Coronavirus/COVID-19? No / Unsure 03/03/2022 10:29 AM CDT documented as of this encounter Plan of Treatment Not on file documented as of this encounter Visit Diagnoses Not on filedocumented in this encounter Additional Health Concerns Assessment Noted Time PHQ-9 Depression Total Score: 20 021 9:16 AM CDT documented as of this encounter Care Teams Rn First Assist Relationship Specialty Start Date End Date Jacquelyn Madison APNP [address] [place] [address] PCP - General NURSE PRACTITIONER 07/22/21 documented as of this encounter
--- OUTSIDE RECORDS SUMMARY | 2024-12-24 09:22 | XMS_ITS | Encounter Summary ---
Author Organization [facility] Address [address] [place] [address] Care Team Providers Care Pressfitter Name Role Phone Jacquelyn Madison Primary Care Provider [phone]- [phone] Encounter Details Date Type Department Care Team (Late st Contact Info) Description 04/09/2023 HomeStayhart Message Enc [facility] Medical Group Family & Internal Medicine [address] [place] [address] Jacquelyn Madison APNP [facility] [place] [address] Vyvance Social History Tobacco Use Types Packs/Day Years Used Date Smoking Tobacco: Never Smokeless Tobacco: Never Alcohol Use Standard Drinks/Week Comments Not Currently 0 (1 standard drink = 0.6 oz [...] CDT Gender Identity Female 07/21/2021 11:07 AM JOINERY FACTORY WORKER Sexual Orientation Straight 07/21/2021 11 :07 AM JOINERY FACTORY WORKER Occupation Industry Job Start Date Job End [...] documented as of this encounter Care Teams Pressfitter Relationship Specialty Start Date End Date Jacquelyn Madison APNP [address] [place] [address] PCP - General NURSE PRACTITIONER 07/22/21 documented as of this encounter
--- OUTSIDE RECORDS SUMMARY | 2024-12-24 09:22 | XMS_ITS | Encounter Summary ---
Author Organization [facility] Address [address] [place] [address] Care Team Providers Care Design Release Engineer Name Role Phone Jacquelyn Madison Primary Care Provider [phone]- [phone] Encounter Details Date Type Department Care Team (Late st Contact Info) Description 11/03/2021 DoNanzahart Message Enc [facility] Medical Group Family & Internal Medicine [phone] [place] [address] Jacquelyn Madison APNP [facility] [place] [address] Medication Social History Tobacco Use Types Packs/Day Years [...] CDT Gender Identity Female 07/21/2021 11:07 AM CASH APPLICATIONS ANALYST Sexual Orientation Straight 07/21/2021 11 :07 AM CASH APPLICATIONS ANALYST Occupation Industry Job Start Date Job [...] documented as of this encounter Care Teams Design Release Engineer Relationship Specialty Start Date End Date Jacquelyn Madison APNP [address] [place] [address] PCP - General NURSE PRACTITIONER 07/22/21 documented as of this encounter
--- OUTSIDE RECORDS SUMMARY | 2024-12-24 09:22 | XMS_ITS | Encounter Summary ---
Author Organization [facility] Address [address] [place] [address] Care Team Providers Care Laminator Preforms Name Role Phone Jacquelyn Madison Primary Care Provider [phone]- [phone] Encounter Details Date Type Department Care Team (Late st Contact Info) Description 02/17/2022 Linkuahart Message Enc [facility] Medical Group Family & Internal Medicine [phone] [place] [address] Jacquelyn Madison APNP [facility] [place] [address] Testing Social History Tobacco Use Types Packs/Day Years [...] CDT Gender Identity Female 07/21/2021 11:07 AM VASCULAR TECHNOLOGIST SONOGRAPHER Sexual Orientation Straight 07/21/2021 11 :07 AM VASCULAR TECHNOLOGIST SONOGRAPHER Occupation Industry Job Start Date Job End [...] documented as of this encounter Care Teams Laminator Preforms Relationship Specialty Start Date End Date Jacquelyn Madison APNP [address] [place] [address] PCP - General NURSE PRACTITIONER 07/22/21 documented as of this encounter
--- OUTSIDE RECORDS SUMMARY | 2024-12-24 09:22 | XMS_ITS | Encounter Summary ---
Author Organization [facility] Address [address] [place] [address] Care Team Providers Care Semiconductor Processing Technician Name Role Phone Jacquelyn Madison Primary Care Provider [phone]- [phone] Encounter Details Date Type Department Care Team (Late st Contact Info) Description 10/09/2021 Stylendahart Message Enc [facility] Medical Group Family & Internal Medicine [address] [place] [address] Jacquelyn Madison APNP [facility] [place] [address] Venlafaxine Social History Tobacco Use [...] CDT Gender Identity Female 07/21/2021 11:07 AM BIZTALK ARCHITECT Sexual Orientation Straight 07/21/2021 11 :07 AM BIZTALK ARCHITECT Occupation Industry Job Start Date Job End [...] documented as of this encounter Care Teams Semiconductor Processing Technician Relationship Specialty Start Date End Date Jacquelyn Madison APNP [address] [place] [address] PCP - General NURSE PRACTITIONER 07/22/21 documented as of this encounter
--- OUTSIDE RECORDS SUMMARY | 2024-12-24 09:22 | XMS_ITS | Encounter Summary ---
Author Organization [facility] Address [address] [place] [address] Care Team Providers Care Mixing House Operator Name Role Phone Jacquelyn Madison Primary Care Provider [phone]- [phone] Encounter Details Date Type Department Care Team (Latest Contact Info) Description 07/13/2023 CorkCRMt Message Enc [facility] Medical Group Family & Internal Medicine [address] [address] Jacquelyn Madison APNP [address] [place] [address] Lisdexamfetamine 30mg Social History Tobacco Use Types Packs/Day Years [...] CDT Gender Identity Female 07/21/2021 11:07 AM COILED TUBING OPERATOR Sexual Orientation Straight 07/21/2021 11 :07 AM COILED TUBING OPERATOR Occupation Industry Job Start Date Job [...] documented as of this encounter Care Teams Mixing House Operator Relationship Specialty Start Date End Date Jacquelyn Madison APNP [address] [place] [address] PCP - General NURSE PRACTITIONER 07/22/21 documented as of this encounter
--- OUTSIDE RECORDS SUMMARY | 2024-12-24 09:22 | XMS_ITS | Clinical Summary ---
Author Organization [facility] Address [facility] [place] [address] Care Team Providers Care Tongue And Quarter Stitcher Name Role Phone GriceldaJacquelyn samayoa MICA Primary Care Provider Allergies Active Allergy Reactions Criticality Noted Date Comments Escitalopram Hives Low 12/08/2021 Medications clobetasol 0.05 % ointmentIndicatio ns:Dyshidrotic hand dermatitis Apply sparingly to affected area(s) twice daily. 15 g 0 Active SUMAtriptan 50 MG tabletIndications :Migraine without aura and without status migrainosus, not intractable Take one tablet by mouth with headache. Repeat every 2 hours as needed to a max of 4 tablets (200 mg) in 24 hours. 9 tablet 2 1 Active valACYclovir (VALTREX) 500 MG tabletIndications :HSV-2 infection Take one tablet once daily. 30 tablet 1 3 Active loratadine (CLARITIN) 10 MG tablet Take 1 tablet (10 mg total) by mouth daily. Active lisdexamfetamine (VYVANSE) 30 MG capsuleIndication s:ADHD Take 1 capsule (30 mg total) by mouth every morning. 30 capsule 4 Active Additional Information Patient not taking.Reported on 03/23/2024 lisdexamfetamine (VYVANSE) 20 MG capsuleIndication s:Attention deficit hyperactivity disorder (ADHD), combined type Take 1 capsule (20 mg total) by mouth every morning. 30 capsule 4 Active buPROPion XL (WELLBUTRIN XL) 150 MG 24 hr tabletIndications :Depression with anxiety Take 1 tablet (150 mg total) by mouth daily. 30 tablet 1 4 Active citalopram (CELEXA) 10 MG tabletIndications :Depression with anxiety Take 1 tablet (10 mg total) by mouth daily. 30 tablet 4 Active albuterol sulfate HFA 108 (90 Base) MCG/ACT inhalerIndication s:Mild persistent asthma without complication (HHS/HCC) INHALE 2 PUFFS BY MOUTH EVERY 4 HOURS NEEDED FOR WHEEZING 51 g 5 Active Active Problems Problem Noted Date Diagnosed Date Attention deficit hyperactiv ity disorder (ADHD), combined type 07/20/2023 Depression with anxiety 02/25/2021 BMI 23.0-23.9, adult 11/17/2019 Hyperhidrosis of palms and soles 11/17/2019 Dyshidrotic hand dermatitis 03/23/2018 Medication management 10/04/2017 Mild persistent asthma without complication (HHS /HCC) 01/28/2016 GERD (gastroesophageal reflux disease) 6 Migraine without aura and wi thout status migrainosus, not intractable 01/28/2016 Resolved Problems Problem Noted Date Diagnosed Date Resolved Date Right knee pain 01/12/2018 11/17/2019 Backache 12/17/2017 11/17/2019 Left shoulder pain 12/17/2017 0 Pes anserine bursitis 11/09/20172019 Immunizations Immunization Administration Dates Next Due Flucelvax 6 Months+ (Prefilled Syringe) 02/28/20 20,04/03/2019 Influenza Adult (Generic) 02/28/2020 Tdap (Adacel) 11/26/2020 Family History Medical History Relation Comments Asthma Brother Alcohol Abuse Father Cancer Father stage 4 lung can cer Hypertension Father Cancer Maternal Grandfather throat canc er Cancer Maternal Grandmother Diabetes Maternal Grandmother Alcohol Abuse Mother COPD Mother Cancer Mother stage 3 lung can cer Miscarriages / Stillbirths Mother Stroke Mother Cancer Paternal Grandfather brain cance r Depression Sister 1 Mental Health Sister 1 Bipolar Neurological Disease Sister 1 Early Sister 2 NF type 2 Early Hearing Loss Sister 2 Mental Health Sister 2 Bipolar Miscarriages / Stillbirths Sister 3 Relation Status Comments Brother Father Maternal Grandfather Maternal Grandmother Mother Paternal Grandfather Sister 1 nf2 Sister 2 Sister 3 Social History Tobacco Use Types Packs/Day Years Used Date Smoking Tobacco: Never Smokeless Tobacco: Never Tobacco Cessation:Counseling Given: No Alcohol Use Standard Drinks/Week Comments Not Currently 0 (1 standard drink = 0.6 oz pur e alcohol) PHQ-2 Answer Date Recorded Patient Health Questionnaire-2 Score 0 07/20/2023 Education Answer Date Recorded What is the highest level of school you have completed or the highest degree you have received? Associate degree: occupational, technical, or vocational program 05/31/2018 Comments No Sex and Gender Information Value Date Recorded Sex Assigned at Not on file Legal Sex Female 7:42 PM CDT Gender Identity Female 07/21/2021 11:07 AM EFFICIENCY MINER BLASTING Sexual Orientation Straight 07/21/2021 11 :07 AM EFFICIENCY MINER BLASTING Occupation Industry Job Start Date Job End Date Not on file Not on file Not on file Not on file Not on file Not on file Not on file Not on file Last Filed Vital Signs Vital Sign Reading Time Taken Comments Blood Pressure 138/88 09/29/2023 2:15 PM CDT Pulse 84 09/29/2023 2:15 PM CDT Temperature 37 C (98.6 F) 09/29/2023 2:15 PM CDT Respiratory Rate 16 09/29/2023 2:15 PM CDT Oxygen Saturation 97% 09/29/2023 2:15 PM CDT Inhaled Oxygen Concentration - - Weight 70.7 kg (155 lb 14.4 oz) 09/29/2023 2:15 PM CDT Height 167.6 cm (5' 6) 09/29/2023 2:15 PM CDT Body Mass Index 25.16 09/29/2023 2:15 PM CDT Plan of Treatment Health Maintenance Due Date Last Done Comments COVID-19 Vaccine ( season) 2024 04/25/2021, 03/28/2021 Annual Physical 02/18/2024 02/17/2023, 11/26/2020 PHQ-2 (Physician [place]) 06/14/2024 07/20/2023 Cervical Cancer Screening Pap Smear (Age 21 to 29) Every 3 Years 04/28/2026 04/28/2023 Cervical Cancer Screening 04/28/2026 Pneumococcal Vaccine: Pediatrics (0 to 5 Years) and At-Risk Patients (6 to 49 Years) (1 of 2 - PCV) 11/17/2030 Postponed from 2014 (Per Provider Recommendation) DTaP, Tdap and Td Vaccines (3 - Td or Tdap) 11/26/2030 11/26/2020, 03/24/2010, 03/30/2000, Additional history exists Hepatitis B Vaccines Completed 1995, 1995, 1995 Meningococcal Vaccine Aged Out 03/24/2010 No gabriel ines eligible based on patient's age to complete this topic Hepatitis C Completed 02/17/2023, 02/13, 11/26/2020 HPV Vaccines Aged Out No longer eligi ble based on patient's age to complete this topic Meningococcal B Vaccine Aged Out No l onger eligible based on patient's age to complete this topic RSV Immunizations Under 20 Months Aged Out No longer eligible based on patient's age to complete this topic Procedures Procedure Name Priority Date/Time Associated Diagnosis Comments HEPATITIS C ANTIBODY Routine 02/17/2023 9:30 AM CDT Screen for STD (sexually transmitted disease) from Last 3 Months or Most Recently Relevant to Health Maintenance Results * HEPATITIS C ANTIBODY ([facility] ONLY) (02/17/2023 9:30 AM CDT) HEPATITIS C AB NON-REACTI VE NON-REACT AMARJIT 04/20/2023 11:52 AM EFFICIENCY MINER BLASTING [facility] Comment: ANTIBODIES TO HCV NOT DETECTED. DOES NOT EXCLUDE THE POSSIBILITY OF EXPOSURE TO HCV. 02/17/2023 9:30 AM CDT Jacquelyn [facility] Final Resul t [facility] [address] [place] [address], [id number] from Last 3 Months or Most Recently Relevant to Health Maintenance [place] [address] [place] [address] [facility] Care Teams Tongue And Quarter Stitcher Relationship Specialty Start Date End Date Jacquelyn Madison APNP [address] [place] [address] PCP - General NURSE PRACTITIONER 07/22/21
--- OUTSIDE RECORDS SUMMARY | 2024-12-24 09:22 | XMS_ITS | Clinical Summary ---
Author Organization [facility] Address [address] [address] Care Team Providers Care Broadcast Technician Name Role Phone Roman Graham Primary Care Provider [phone] Allergies No known active allergies Medications albuterol HFA 90 mcg inhaler Take 2 Puffs by inhalation every 6 hours as needed for Shortness of Breath. Active aspirin-acetami nophen-caffeine (EXCEDRIN MIGRAINE) 250-250-65 mg Tablet Take 1 Tablet by mouth every 4 hours as needed for Headaches. Active Etonogestrel (NEXPLANON) 68 mg Implant by Subdermal route. Active Active Problems Problem Noted Date Diagnosed Date Exercise-induced asthma 01/28/2016 Migraine 01/28/2016 GERD (gastroesophageal reflux disease) 6 Family History Medical History Relation Name Comments Hypertension Father Lung Cancer Father Ovarian Cancer Sister Relation Name Status Comments Father Sister Social History Tobacco Use Types Packs/Day Years Used Date Smoking Tobacco: Never Smokeless Tobacco: Never Alcohol Use Standard Drinks/Week Comments Yes 0 (1 standard drink = 0.6 oz pur e alcohol) occas Comments Unknown Sex and Gender Information Value Date Recorded Sex Assigned at Not on file Legal Sex Female 2:46 AM AUTOMOTIVE TIRE WORKER Gender Identity Not on file Sexual Orientation Not on file Last Filed Vital Signs Vital Sign Reading Time Taken Comments Blood Pressure 126/80 08/28/2021 9:19 AM CDT Pulse 72 10/06/2016 10:32 AM CDT Temperature 37.1 C (98.7 F) 10/06/2016 10:27 AM CDT Respiratory Rate 18 10/06/2016 10:27 AM CDT Oxygen Saturation 100% 10/06/2016 10:27 AM CDT Inhaled Oxygen Concentration - - Weight 61.7 kg (136 lb) 08/28/2021 9:19 AM CDT Height 167.6 cm (5' 6) 08/28/2021 9:19 AM CDT Body Mass Index 21.95 08/28/2021 9:19 AM CDT Plan of Treatment Health Maintenance Due Date Last Done Comments HEPATITIS B VACCINES (1 of 3 - 19+ 3-dose series) 2014 CERVICAL CANCER SCREENING 01/17/2016 HPV/Cotest (21-29) 01/17/2016 PAP SMEAR 01/17/2016 INFLUENZA VACCINE (#1) 2025 0, 04/03/2019 HPV/Cotest (30-65) 2025 DTAP/TDAP/TD VACCINES (2 - Td or Tdap) 11/26/2030 11/26/2020 HPV VACCINES Aged Out No longer eligi ble based on patient's age to complete this topic Insurance [facility] OPEN ACCESS O [employer] OPEN ACCESS Care Teams Broadcast Technician Relationship Specialty Start Date End Date Roman Graham DO [address] [place] [address] PCP - General Family Practice 01/28/16
--- OUTSIDE RECORDS SUMMARY | 2024-12-24 09:22 | XMS_ITS | Encounter Summary ---
Author Organization [facility] Address [address] [place] [address] Care Team Providers Care Optometry Teacher Name Role Phone Jacquelyn Madison Primary Care Provider [phone] Encounter Details Date Type Department Care Team (Latest Contact Info) Description 10/20/2021 mymxlogt Message Enc [facility] Medical Group Family & Internal Medicine [address] [address] Jacquelyn Madison APNP [address] [place] [address] escitalopram 10 MG tablet Social History Tobacco Use Types Packs/Day Years [...] CDT Gender Identity Female 07/21/2021 11:07 AM BIOINFORMATICIST Sexual Orientation Straight 07/21/2021 11 :07 AM BIOINFORMATICIST Occupation Industry Job Start Date Job End [...] documented as of this encounter Care Teams Optometry Teacher Relationship Specialty Start Date End Date Jacquelyn Madison APNP [address] [place] [address] PCP - General NURSE PRACTITIONER 07/22/21 documented as of this encounter
--- OUTSIDE RECORDS SUMMARY | 2024-12-24 09:22 | XMS_ITS | Encounter Summary ---
Author Organization [facility] Address [address] [place] [address] Care Team Providers Care Credentialing Assistant Name Role Phone Jacquelyn Madison Primary Care Provider [phone]- [phone] Encounter Details Date Type Department Care Team (Late st Contact Info) Description 03/06/2024 Near Infinityt Message Enc [facility] Medical Group Family & Internal Medicine [address] [place] [address] Jacquelyn Madison APNP [facility] [place] [address] [place] Social History Tobacco Use Types Packs/Day Years [...] CDT Gender Identity Female 07/21/2021 11:07 AM HYDROBLASTER Sexual Orientation Straight 07/21/2021 11 :07 AM HYDROBLASTER Occupation Industry Job Start Date Job End Date Not on file Not on file Not on file Not on file Not on file Not on file Not on file Not on file documented as of this encounter Progress Notes * Ryann Irizarry MA - 03/07/2024 12:50 PM CDT Pt hasn't had filled since September, according to PDMP. Pt overdue for follow-up. Needs to schedule OVto discuss med changes/refills with Jacquelyn. documented in this encounter Plan of Treatment Not on file documented as of this encounter Visit Diagnoses Not on filedocumented in this encounter Additional Health Concerns Assessment Noted Time PHQ-9 Depression Total Score: 20 021 9:16 AM CDT documented as of this encounter Care Teams Credentialing Assistant Relationship Specialty Start Date End Date Jacquelyn Madison APNP [address] [place] [address] PCP - General NURSE PRACTITIONER 07/22/21 documented as of this encounter
--- OUTSIDE RECORDS SUMMARY | 2024-12-24 09:22 | XMS_ITS | Encounter Summary ---
Author Organization [employer] Address [address] [place] [address] Care Team Providers Care Process Plant Operator Name Role Phone Roman Graham DO Primary Care Provider [phone] Encounter Details Date Type Department Care Team (Late st Contact Info) Description 03/13/1999 Outpatient Historical [facility] Nomi Hernandez Er, Authorized P NO ADDRESS ON FILE Abdominal pain, unspecified site (Primary Dx) Social History Tobacco Use Types Packs/Day Years Used Date Smoking Tobacco: Never Assessed Comments Unknown Sex and Gender Information Value Date Recorded Sex Assigned at Not on file Legal Sex Female 2:46 AM PATIENT REGISTRATION REP Gender Identity Not on file Sexual Orientation Not on file documented as of this encounter Plan of Treatment Not on file documented as of this encounter Visit Diagnoses Diagnosis Abdominal pain, unspecified site- Primary documented in this encounter Care Teams Process Plant Operator Relationship Specialty Start Date End Date Roman Graham DO [address] [facility] [place] [address] PCP - General Family Practice 01/28/16 documented as of this encounter
--- OUTSIDE RECORDS SUMMARY | 2024-12-24 09:22 | XMS_ITS | Encounter Summary ---
Author Organization [facility] Address [address] [place] [address] Care Team Providers Care Fireworks Maker Name Role Phone Jacquelyn Madison Primary Care Provider [phone] Encounter Details Date Type Department Care Team (Late st Contact Info) Description 04/19/2023 [place] Message Enc [facility] Family & Internal Medicine [address] [id number] Jacquelyn Madison APNP [facility] [place] [address] Social History Tobacco Use Types Packs/Day Years [...] CDT Gender Identity Female 07/21/2021 11:07 AM OUTSOLE BEVELER Sexual Orientation Straight 07/21/2021 11 :07 AM OUTSOLE BEVELER Occupation Industry Job Start Date Job End Date Not on file Not on file Not on file Not on file Not on file Not on file Not on file Not on file documented as of this encounter Progress Notes * MICA Wang - 04/20/2023 8:07 AM CST We can discuss weaning off but if she would like to stay on the SSRI--we can switch to sertraline as this one is generally safe with . Bupropion is at lowest dose--she can just stop this one OLE BEVELER documented in this encounter Plan of Treatment Not on file documented as of this encounter Visit Diagnoses Not on filedocumented in this encounter Additional Health Concerns Assessment Noted Time PHQ-9 Depression Total Score: 20 021 9:16 AM CDT documented as of this encounter Care Teams Fireworks Maker Relationship Specialty Start Date End Date Jacquelyn Madison APNP [address] [place] [id number] PCP - General NURSE PRACTITIONER 07/22/21 documented as of this encounter
--- OUTSIDE RECORDS SUMMARY | 2024-12-24 09:22 | XMS_ITS | Encounter Summary ---
Author Organization [facility] Address [address] [place] [address] Care Team Providers Care Cook Frozen Dessert Name Role Phone Jacquelyn Madison Primary Care Provider [phone] Reason for Visit * Reason Onset Date Comments Appointment Request 03/15/2024 Encounter Details Date Type Department Care Team (Late st Contact Info) Description 03/15/2024 [place] Message Enc [facility] Family & Internal Medicine [id number] [place] [id number] Jacquelyn Madison APNP [facility] [place], [place] [id number] Appointment on the Social History Tobacco Use Types Packs/Day Years [...] Gender Identity Female 07/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
[2024-12-24 09:30] VITALS: BP 138/74; PULSE 90; RESP 16; TEMP 36.8; O2SAT 100
== END 2024-12-24 09:47 | disposition home or self-care (01) ==
PROVIDERS: Emergency Provider Nurse Practitioner Family; PCP Registered Nurse
DX: L23.7 Allergic contact dermatitis due to plants, except food (principal)
CPT/HCPCS: 99213; G0463

== ENCOUNTER 2025-05-31 12:19 | Emergency (ER) | payer OTHER, SELFPAY ==
[2025-05-31 12:30] VITALS: BP 150/96; PULSE 88; RESP 20; TEMP 36.7; O2SAT 100
[2025-05-31 12:56] LABS: EDUAAPPEAR Clear; EDUABILI Negative (Negative); EDUABLOOD Negative (Negative); EDUACOLOR1 Yellow; EDUAGLUCOSE Negative (Negative); EDUAKETONE Negative (Negative); EDUALEUKO Negative (Negative); EDUANITRATE Negative (Negative); EDUAPH 6.0; EDUAPROTEIN Negative (Negative); EDUASPGRAVITY 1.010; EDUAUROBILI 0.2
--- NOTE | 2025-05-31 13:17 | ED_ITS ---
HPI - Female Genitourinary General Chief complaint: Urogenital-Female Stated complaint: 10 weeks possible uti Time Seen by Provider: 05/31/25 12:50 Source: patient and RN notes reviewed Mode of arrival: ambulatory Limitations: no limitations History of Present Illness HPI Narrative: 30-year-old female presents Express Care complaining of urinary symptoms for 1-2 days. Patient reports having difficulty urinating, reported 1 time of burning with urination. Patient feels like she is not emptying her bladder. She also reports some abdominal cramping and low back pain. Patient is currently 10 weeks , she is doing IVF. . Patient is yet to follow-up with OBGYN yet, she has a scheduled appointment over at [facility]. Patient denies any fevers, abdominal pain, body aches, chills, nausea, vomiting, diarrhea, chest pain difficulty breathing, vision changes, vaginal discharge, or any other symptoms. Patient has not taken anything [id number] for symptoms. Patient denies any significant past medical history. Patient's blood pressure is elevated today, she denies any history of hypertension. Related Data Home Medications ?Medication ?Instructions ?Recorded ?Confirmed ?Last Taken ?Type estradiol 0.1 mg/24 hr semiweekly 05/31/25 Unknown H istory transdermal patch estradiol 2 mg tablet mg 05/31/25 Unknown History progesterone 50 mg/mL mg IM 05/31/25 Unknown Hist ory intramuscular oil Allergies Allergy/AdvReac Type Severity Reaction Status Date / Time No Known Allergies Allergy Verified 05/31/25 12:32 Review of Systems Review of Systems: CONSTITUTIONAL: Denies fever, chills, body aches, or sweats. EYES: Denies visual changes, redness, or discharge. ENT: Denies rhinorrhea, congestion, sore throat, or otalgia. CARDIOVASCULAR: Denies chest pain, palpitations, or edema. RESPIRATORY: Denies cough or dyspnea. GASTROINTESTINAL: Denies abdominal pain, nausea, vomiting, or diarrhea. Positive for abdominal cramping GENITOURINARY: Positive for dysuria, hesitancy. Negative for hematuria, vaginal bleeding, frequency, vaginal discharge,. SKIN: Denies rash or itching. MUSCULOSKELETAL: Positive for low back pain. Negative for, joint pain, or myalgia. NEUROLOGIC: Denies headache, numbness, or weakness. PSYCHIATRIC: Denies anxiety or depression. All other systems reviewed are negative, except as documented in HPI. [facility] Past Medical History Medical History (Updated 05/31/25 @ 13:17 by Jose Ragnel APRN) No significant past medical history Comments At the time of my signature, I reviewed and agree with the nursing past medical, surgical, social, and family history. There is no relevant family history pert inent to the patient complaint. Exam Narrative: GENERAL: This is a well-nourished, well-developed adult, in no apparent distress. They are non ill-appearing, nontoxic appearing. HEAD: normocephalic, atraumatic. EYES: Sclera clear/white. Vision is grossly intact. Conjunctiva normal bilaterally. Extraocular movements intact. EARS: External ears normal,Hearing grossly intact. NOSE: External nose normal THROAT: Mucous membranes moist NECK: Normal range of motion CARDIOVASCULAR: Regular rate and rhythm. Normal S1-S2. No clicks, gallops, rubs, murmurs. RESPIRATORY: Respiratory rate normal, respiratory effort nonlabored, no respiratory distress. Lung sounds clear to auscultation throughout. Lung sounds equal bilaterally. No adventitious lung sounds. GASTROINTESTINAL: Abdomen soft, flat, non-tender, nondistended. Bowel sounds are active. No hepato-splenomegaly, or palpable masses. No guarding. No rebound tenderness. SKIN: warm, Dry, intact with no suspicious lesions or rash, good texture and turgor. NEURO: awake, alert, and oriented to person, place and time. There were no obvious focal neurologic abnormalities. EXTREMITIES: No joint tenderness, effusion, or edema noted. BACK: Nontender without deformity. No CVA tenderness. Course Course Level of Care: Express Care Visit Vital Signs Vital signs: Vital Signs Temperature 98.0 F 05/31/25 12:30 Pulse Rate 88 05/31/25 12:30 Respiratory Rate 20 05/31/25 12:30 Blood Pressure 150/96 H 05/31/25 12:30 Pulse Oximetry 100 05/31/25 12:30 Oxygen Delivery Room Air 05/31/25 12:30 Temperature 98.0 F 05/31/25 12:30 Pulse Rate 88 05/31/25 12:30 Respiratory Rate 20 05/31/25 12:30 Blood Pressure 150/96 H 05/31/25 12:30 Pulse Oximetry 100 05/31/25 12:30 Oxygen Delivery Room Air 05/31/25 12:30 Transfer Transfered to: [facility] Transportation: Other (Private vehicle) Transfer rationale: Urinary symptoms, elevated blood pressure while , patient requires higher level care Accepting physician: Doctor Finney [facility] Narrative Medical decision making narrative: Urine dipstick negative for any evidence of infection negative protein. Urine culture pending. Patient has elevated blood pressure today 150/96, is currently 10 weeks . Given patient's symptoms and abnormal vital signs, it is recommend the patient seek a higher level care and proceed immediately to the emergency department. The patient has yet to stabbed to the OBGYN, patient would like to go to [facility] today. Called over to [facility] and spoke to Dr. Finney who is aware this patient accepted the patient for transfer. Advised to remain NPO proceed immediately to the ER. Differential Diagnosis Differential Diagnosis: Preeclampsia, maternal hypertension, urinary tract infection, pyelonephritis, cystitis Lab Data [facility] Lab Attestation statement: I personally reviewed the patient's lab results. Labs: Lab Results 05/31/25 Range/Units 12:54 POC Urine Color Yellow POC Urine Clarity Clear POC Urine pH 6.0 POC Ur Specif [place] 1.010 POC Urine Protein Negative (Negative) POC Ur Glucose (UA) Negative (Negative) POC Urine Ketones Negative (Negative) POC Urine Blood Negative (Negative) POC Urine Nitrite Negative (Negative) POC Urine Bilirubin Negative (Negative) POC Urine Urobilinogen 0.2 POC U Leukocyte Esteras Negative (Negative) Discharge Plan Discharge Clinical Impression: Dysuria, Elevated blood pressure affecting in first trimester, antepartum Patient Disposition: Acute Care Hospital Condition: Stable Patient Language: Uzbek Prescriptions: No Action estradiol 0.1 mg/24 hr patch semiweekly progesterone 50 mg/mL oil IM estradiol 2 mg tablet Follow-up/Referrals: UNKNOWN,DOCTOR [Primary Care Provider] Time of Disposition: 13:17
== END 2025-05-31 13:28 | disposition short-term general hospital (02) ==
DX: O99.891 Other specified diseases and conditions complicating pregnancy (principal); R30.0 Dysuria; R03.0 Elevated blood-pressure reading, without diagnosis of hypertension; Z3A.10 10 weeks gestation of pregnancy
CPT/HCPCS: 81003; 87086; 99212; 99213; G0463

== ENCOUNTER 2025-05-31 13:58 | Emergency (ER) | payer OTHER, SELFPAY ==
--- NOTE | ~2025-05-31 | US_ITS ---
EXAMINATION: US renal BI, 05/31/2025 15:00 DOOR CUTTER HISTORY: flank pain, , difficulty urinating Comparison: None Technique: Weaver-scale and color Doppler images were obtained. Findings: KIDNEYS: Renal cortices intact, no solid masses, cysts or calculi, no hydronephrosis. Right Kidney: Right kidney 11.3 x 4.8 x 5.4 cm, normal. Left Kidney: Left kidney 12.8 x 4.5 x 4.7 cm, normal. Bladder: The bladder is unremarkable. . Impression: No acute abnormality. Reviewed, dictated and finalized at location P. CUTTER Impression: No acute abnormality.
[2025-05-31 14:01] VITALS: BP 159/101; PULSE 94; RESP 16; TEMP 36.7; O2SAT 100
--- NOTE | 2025-05-31 15:19 | ED_ITS ---
HPI - Recheck/Abnormal Lab/Rx General Chief Complaint: Recheck/Abnormal Lab/Rx <Joslyn Macdonald PA-C - Last Filed: 06/01/25 17:02> Stated Complaint: high blood pressure <Joslyn Macdonald PA-C - Last Filed: 06/01/25 17:02> Time Seen by Provider: 05/31/25 15:19 <Joslyn Macdonald PA-C - Last Filed: 06/01/25 17:02> Focused HPI: This is a 30 year old female that presents to the ER for urinary issues. Reports she has had difficulty urinating for the last 2 days. She has had some left flank pain. She went to urgent care for evaluation and her blood pressure was high, sent to the ER. No history of kidney stones, does report history of hypertension in the past, no currently on medications. She is 10 weeks . Has had an US this . Her OB is Dr. Botello at [facility]. Denies fever, vomiting, hematuria. GENERAL: Well-appearing, well-nourished, and in no acute distress. HEAD: Normocephalic, atraumatic. CHEST: Clear to auscultation. ?No respiratory distress. HEART: Regular rate and rhythm.? NEURO: ?Alert and oriented x3. Patient screened in triage and initial orders placed.? ?Additional care and disposition to be based upon?diagnostic testing and treatment. <Joslyn Macdonald PA-C - Last Filed: 06/01/25 17:02> History of Present Illness HPI narrative: per HPI <Temitope Rawls MD - Last Filed: 05/31/25 18:39> Related Data Home Medications: Home Medications ?Medication ?Instructions ?Recorded ?Confirmed ?Last Taken ?Type estradiol 0.1 mg/24 hr semiweekly 05/31/25 Unknown H istory transdermal patch estradiol 2 mg tablet mg 05/31/25 Unknown History progesterone 50 mg/mL mg IM 05/31/25 Unknown Hist ory intramuscular oil <Joslyn Macdonald PA-C - Last Filed: 06/01/25 17:02> Allergies/Adverse Reactions: Allergies Allergy/AdvReac Type Severity Reaction Status Date / Time No Known Allergies Allergy Verified 05/31/25 12:32 <Joslyn Macdonald PA-C - Last Filed: 06/01/25 17:02> Review of Systems 2 Review of Systems: All systems reviewed & are unremarkable except as noted in HPI and below <Temitope Rawls MD - Last Filed: 05/31/25 18:39> [facility] Past Medical History Medical History: Medical History (Updated 06/01/25 @ 00:01 by Background Daemon) No significant past medical history <Joslyn Macdonald PA-C - Last Filed: 06/01/25 17:02> Exam 2 Narrative: EXAMINATION OF ORGAN SYSTEMS/BODY AREAS: Constitutional: Vital signs per nursing GENERAL:No acute distress, non-toxic appearing. HEAD: Normal with no signs of head trauma. EYES: EOMI, conjunctiva normal ENT: Hearing grossly intact LUNGS: Nonlabored breathing. HEART: Regular rate and rhythm ABD: Soft, nontender to palpation EXT: Normal range of motion SKIN: No rashes or lesions. NEURO: Alert. No gross focal sensory or strength deficits. PSYCH: Normal affect <Temitope Rawls MD - Last Filed: 05/31/25 18:39> Course Vital Signs Vital signs: Vital Signs Temperature 98.1 F 05/31/25 14:01 Pulse Rate 94 05/31/25 14:01 Respiratory Rate 16 05/31/25 14:01 Blood Pressure 159/101 H 05/31/25 14:01 Pulse Oximetry 100 05/31/25 14:01 Temperature 98.1 F 05/31/25 14:01 Pulse Rate 73 05/31/25 16:50 Respiratory Rate 16 05/31/25 16:50 Blood Pressure 138/91 H 05/31/25 16:50 Pulse Oximetry 100 05/31/25 16:50 <Joslyn Macdonald PA-C - Last Filed: 06/01/25 17:02> Vital Signs Temperature 98.1 F 05/31/25 14:01 Pulse Rate 94 05/31/25 14:01 Respiratory Rate 16 05/31/25 14:01 Blood Pressure 159/101 H 05/31/25 14:01 Pulse Oximetry 100 05/31/25 14:01 Temperature 98.1 F 05/31/25 14:01 Pulse Rate 73 05/31/25 16:50 Respiratory Rate 16 05/31/25 16:50 Blood Pressure 138/91 H 05/31/25 16:50 Pulse Oximetry 100 05/31/25 16:50 <Temitope Rawls MD - Last Filed: 05/31/25 18:39> MDM MDM Narrative Medical decision making narrative: 30-year-old female around 10 weeks the IVF with confirmed IUP presents here sent from urgent care due to some slight low back pain, some dysuria, and elevated blood pressure. She is very well-appearing here, repeat blood pressure is normal. Labs obtained within normal limits including normal urine, renal ultrasound performed since she is does not show any obvious signs of hydronephrosis. I do feel she is stable for discharge, she would like to follow-up with her OBGYN at [facility] have given her return precautions. <Temitope Rawls MD - Last Filed: 05/31/25 18:39> Differential Diagnosis Differential Diagnosis: Anxiety, kidney stones, UTI, etc. <Temitope Rawls MD - Last Filed: 05/31/25 18:39> Lab Data Result diagrams: 05/31/25 15:57 05/31/25 15:57 <Joslyn Macdonald PA-C - Last Filed: 06/01/25 17:02> Labs: Lab Results 05/31/25 05/31/25 05/31/25 Range/Units 15:57 15:58 16:06 WBC 9.6 (4.5-10.0) K/mm3 RBC 4.78 (4.2-5.4) M/mm3 Hgb 14.3 (12.0-15.0) g/dL Hct 41.6 (37.0-47.0) % MCV 87.0 (80-100) fl MCH 29.9 (26-34) pg MCHC 34.4 (32-36) g/dl RDW 12.9 (11.5-14.5) % Plt Count 306 (150-375) k/mm3 MPV 10.1 (7.4-10.4) fl Immature Gran % (Auto) 0.1 (0-0.5) % Neut % (Auto) 65.4 (45.5-73.1) % Lymph % (Auto) 23.6 (18.3-44.2) % [place] % (Auto) 7.2 (2.6-8.5) % Eos % (Auto) 3.5 (0-4.4) % Baso % (Auto) 0.2 (0.2-1.2) % Lymph # (Auto) 2.26 (0.9-3.2) K/mm3 [place] # (Auto) 0.7 H (0.1-0.6) K/mm3 Eos # (Auto) 0.3 (0-0.3) K/mm3 Baso # (Auto) 0.0 (0.0-0.1) K/mm3 Abs Immat Gran (auto) 0.01 (0.00-0.031) K/mm3 Absolute Neuts (auto) 6.3 (1.3-6.7) K/mm3 Absolute Nucleated RBC 0.000 (0.0-0.012) K/mm3 Nucleated RBC % 0.0 (0.0-0.2) % Sodium 137 (137-145) mmol/L Potassium 3.7 (3.4-5.0) mmol/L Chloride 106 (98-107) mmol/L Carbon Dioxide 24 (22-30) mmol/L Anion Gap 7 (4-12) mmol/L BUN 6 L (7-17) mg/dL Creatinine 0.68 L (0.7-1.0) mg/dL Estim Creat Clear Calc 111 ml/min Estimated GFR > 60 (59 - ) Glucose 99 (65-110) mg/dL Calcium 9.4 (8.4-10.2) mg/dL Total Bilirubin 0.5 (0.2-1.3) mg/dL AST 30 (14-36) U/L ALT 27 (6-35) U/L Alkaline Phosphatase 87 (38-126) U/L Total Protein 7.6 (6.3-8.2) g/dL Albumin 4.1 (3.5-5.1) g/dL Lipase 84 (23-300) U/L Urine Color Yellow (Yellow) Urine Appearance Clear (Clear) Urine pH 6.0 (5.0-9.0) Ur Specific [place] 1.011 (1.001-1.035) Urine Protein Negative (Negative) mg/dL Urine Glucose (UA) Negative (Negative) mg/dL Urine Ketones Trace H (Negative) mg/dL Ur Blood (Man) Negative (Negative) Urine Nitrate Negative (Negative) Urine Bilirubin Negative (Negative) Urine Urobilinogen 0.2 (<2.0) mg/dL Leukocyte Esterase Rfl Negative (Negative) MAIN/UL POC Urine HCG, Qual Positive (Negative) <Joslyn Macdonald PA-C - Last Filed: 06/01/25 17:02> Lab Results 05/31/25 05/31/25 05/31/25 Range/Units 15:57 15:58 16:06 WBC 9.6 (4.5-10.0) K/mm3 RBC 4.78 (4.2-5.4) M/mm3 Hgb 14.3 (12.0-15.0) g/dL Hct 41.6 (37.0-47.0) % MCV 87.0 (80-100) fl MCH 29.9 (26-34) pg MCHC 34.4 (32-36) g/dl RDW 12.9 (11.5-14.5) % Plt Count 306 (150-375) k/mm3 MPV 10.1 (7.4-10.4) fl Immature Gran % (Auto) 0.1 (0-0.5) % Neut % (Auto) 65.4 (45.5-73.1) % Lymph % (Auto) 23.6 (18.3-44.2) % [place] % (Auto) 7.2 (2.6-8.5) % Eos % (Auto) 3.5 (0-4.4) % Baso % (Auto) 0.2 (0.2-1.2) % Lymph # (Auto) 2.26 (0.9-3.2) K/mm3 [place] # (Auto) 0.7 H (0.1-0.6) K/mm3 Eos # (Auto) 0.3 (0-0.3) K/mm3 Baso # (Auto) 0.0 (0.0-0.1) K/mm3 Abs Immat Gran (auto) 0.01 (0.00-0.031) K/mm3 Absolute Neuts (auto) 6.3 (1.3-6.7) K/mm3 Absolute Nucleated RBC 0.000 (0.0-0.012) K/mm3 Nucleated RBC % 0.0 (0.0-0.2) % Sodium 137 (137-145) mmol/L Potassium 3.7 (3.4-5.0) mmol/L Chloride 106 (98-107) mmol/L Carbon Dioxide 24 (22-30) mmol/L Anion Gap 7 (4-12) mmol/L BUN 6 L (7-17) mg/dL Creatinine 0.68 L (0.7-1.0) mg/dL Estim Creat Clear Calc 111 ml/min Estimated GFR > 60 (59 - ) Glucose 99 (65-110) mg/dL Calcium 9.4 (8.4-10.2) mg/dL Total Bilirubin 0.5 (0.2-1.3) mg/dL AST 30 (14-36) U/L ALT 27 (6-35) U/L Alkaline Phosphatase 87 (38-126) U/L Total Protein 7.6 (6.3-8.2) g/dL Albumin 4.1 (3.5-5.1) g/dL Lipase 84 (23-300) U/L Urine Color Yellow (Yellow) Urine Appearance Clear (Clear) Urine pH 6.0 (5.0-9.0) Ur Specific [place] 1.011 (1.001-1.035) Urine Protein Negative (Negative) mg/dL Urine Glucose (UA) Negative (Negative) mg/dL Urine Ketones Trace H (Negative) mg/dL Ur Blood (Man) Negative (Negative) Urine Nitrate Negative (Negative) Urine Bilirubin Negative (Negative) Urine Urobilinogen 0.2 (<2.0) mg/dL Leukocyte Esterase Rfl Negative (Negative) MAIN/UL POC Urine HCG, Qual Positive (Negative) <Temitope Rawls MD - Last Filed: 05/31/25 18:39> Imaging Data Radiologist's impression: ITS Impressions Renal Ultrasound 05/31/25 15:49 Impression: No acute abnormality. <Joslyn Macdonald PA-C - Last Filed: 06/01/25 17:02> ITS Impressions Renal Ultrasound 05/31/25 15:49 Impression: No acute abnormality. <Temitope Rawls MD - Last Filed: 05/31/25 18:39> Critical Care Time Critical Care Time Critical Care Time: No <Joslyn Macdonald PA-C - Last Filed: 06/01/25 17:02> Discharge Plan Discharge Clinical Impression: Dysuria, Elevated blood pressure reading <Joslyn Macdonald PA-C - Last Filed: 06/01/25 17:02> Patient Disposition: Home <WILFRIDO Hernandez Last Filed: 06/01/25 17:02> Condition: Stable <WILFRIDO Hernandez Last Filed: 06/01/25 17:02> Instructions: Hypertension During (ED) <WILFRIDO Hernandez Last Filed: 06/01/25 17:02> Additional Instructions: Please call your OB office today to see if you can get scheduled for a sooner appointment. You can always return to the ER for any further issues. <Joslyn Macdonald PA-C - Last Filed: 06/01/25 17:02> Patient Language: Slovenian <Joslyn Macdonald PA-C - Last Filed: 06/01/25 17:02> Prescriptions: No Action estradiol 0.1 mg/24 hr patch semiweekly progesterone 50 mg/mL oil IM estradiol 2 mg tablet <Joslyn Macdonald PA-C - Last Filed: 06/01/25 17:02> Follow-up/Referrals: PHYSICIAN NOT ON STAFF,NONSTAFF [Non-Staff] <WILFRIDO Hernandez Last Filed: 06/01/25 17:02>
--- NOTE | 2025-05-31 15:35 | PC.NURSE ---
Pt called for MSE orders, no response. RN called US and was informed pt is with them at this time
[2025-05-31 15:47] VITALS: BP 143/94; PULSE 89; RESP 16; O2SAT 97
[2025-05-31 15:59] LABS: BEDSIDEPREGUCG Positive (Negative)
[2025-05-31 16:04] LABS: Hematocrit 41.6 % (37.0-47.0); Hemoglobin 14.3 g/dL (12.0-15.0); Immature Granulocyte Percent A 0.1 % (0-0.5); Lymphocytes Absolute Auto 2.26 K/mm3 (0.9-3.2); Mean Corpuscular HGB Conc 34.4 g/dl (32-36); Mean Corpuscular Hemoglobin 29.9 pg (26-34); Mean Corpuscular Volume 87.0 fl (80-100); Nucleated Red Blood Cells Absolute Auto 0.000 K/mm3 (0.0-0.012); Nucleated Red Blood Cells Perc 0.0 % (0.0-0.2); Platelet Count Result 306 k/mm3 (150-375); Red Blood Count 4.78 M/mm3 (4.2-5.4); White Blood Count 9.6 K/mm3 (4.5-10.0)
[2025-05-31 16:10] VITALS: RESP 16
[2025-05-31 16:12] LABS: Add Urine Microscopic? NO; Appearance Urine Clear (Clear); Glucose Urine UA Negative (Negative); Leukocyte Esterase Ur Negative LEU/UL (Negative); Nitrate Urine Negative (Negative); Specific Grav Ur 1.011 (1.001-1.035)
[2025-05-31 16:14] LABS: Alanine Aminotransferase 27 U/L (6-35); Albumin Level 4.1 g/dL (3.5-5.1); Alkaline Phosphatase 87 U/L (38-126); Anion Gap 7 mmol/L (4-12); Aspartate Amino Transferase 30 U/L (14-36); Bilirubin,Total 0.5 mg/dL (0.2-1.3); Blood Urea Nitrogen 6 mg/dL (7-17); Calcium 9.4 mg/dL (8.4-10.2); Carbon Dioxide 24 mmol/L (22-30); Chloride 106 mmol/L (98-107); Estimated CRCL calculation 111 ml/min; Estimated Glomerular Filt Rate > 60; Glucose 99 mg/dL (65-110); Lipase 84 U/L (23-300); Potassium 3.7 mmol/L (3.4-5.0); Sodium 137 mmol/L (137-145); Total Protein 7.6 g/dL (6.3-8.2)
[2025-05-31 16:50] VITALS: BP 138/91; PULSE 73; RESP 16; O2SAT 100
== END 2025-05-31 16:50 | disposition home or self-care (01) ==
PROVIDERS: Physician Assistant; Emergency Provider Emergency Medicine; PCP Registered Nurse
DX: O26.891 Other specified pregnancy related conditions, first trimester (principal); R03.0 Elevated blood-pressure reading, without diagnosis of hypertension; R30.0 Dysuria; Z3A.10 10 weeks gestation of pregnancy
CPT/HCPCS: 36415; 76770; 80053; 81003; 81025; 83690; 85025; 99284